=== PATIENT | male | born 1990 | race Caucasian/White ===

== ENCOUNTER 2016-08-24 14:55 | Emergency (ER) | payer OTHER ==
[2016-08-24 15:30] LABS: BASOPHIL# 0.1 X10e3 (0-0.3); BASOPHIL% 0.5 % (0-2.5); EOSINOPHIL# 0.1 X10e3 (0-0.7); EOSINOPHIL% 1.5 % (0.0-7.0); HEMATOCRIT 49.8 % (38.0-50.0); HEMOGLOBIN 17.2 gm/dL (13.0-16.0); LYMPHOCYTE# 1.4 X10e3 (1.0-3.5); LYMPHOCYTE% 14.7 % (17.0-45.0); MEAN CELL VOLUME 85.8 FL (83-96); MEAN CORPUSCULAR HEMOGLOBIN 29.7 PG (28-34); MEAN CORPUSCULAR HGB CONC 34.6 g/dL (30-36); MONOCYTE# 0.7 X10e3 (0-1.0); MONOCYTE% 7.3 % (3.0-12.0); NEUTROPHIL# 7.4 X10e3 (1.5-7.1); PLATELET COUNT 247 X10e3 (140-420); RED CELL DISTRIBUTION WIDTH 13.7 % (11.0-15.5); WHITE BLOOD COUNT 9.7 X10e3 (4.0-10.5)
[2016-08-24 15:47] LABS: DIFF IND NO
[2016-08-24 15:58] LABS: ALBUMIN SERUM 5.1 g/dL (3.5-5.0); ALKALINE PHOSPHATASE 57 U/L (32-92); ALT (SGPT) 13 U/L (10-40); AST (SGOT) 17 U/L (10-42); BILIRUBIN, DIRECT 0.2 mg/dL (0.0-0.2); BILIRUBIN,INDIRECT 0.7 mg/dL (0.0-0.9); BILIRUBIN,TOTAL 0.9 mg/dL (0.2-2.0); BLOOD UREA NITROGEN 11 mg/dL (9-23); CALCIUM SERUM 9.5 mg/dL (8.4-10.2); CARBON DIOXIDE 22 mmol/L (22-31); CHLORIDE 106 mmol/L (100-111); GLOM FILT RATE Estimated 102.7 mL/min (>60); GLUCOSE FASTING 104 mg/dL (70-110); POTASSIUM 3.7 mmol/L (3.5-5.1); PROTEIN TOTAL SERUM 7.5 g/dL (6.0-8.3); SALICYLATE <4.0 mg/dL; SODIUM 138 mmol/L (135-145)
[2016-08-24 15:59] LABS: ACETAMINOPHEN <10 ug/mL; ALCOHOL BLOOD <5 mg/dL (0)
[2016-08-24 16:20] LABS: URINE SOURCE CLEAN CATCH
[2016-08-24 16:24] LABS: URINE APPEARANCE CLEAR; URINE BILIRUBIN NEG (NEG); URINE BLOOD NEG (NEG); URINE COLOR YELLOW; URINE GLUCOSE NEG (NORM); URINE KETONE NEG (NEG); URINE LEUKOCYTE ESTERASE NEG (NEG); URINE NITRATE NEG (NEG); URINE PH 5.5 (5-8); URINE PROTEIN NEG (NEG); URINE SPECIFIC GRAVITY 1.015 (1.003-1.035); URINE UROBILINOGEN 0.2 MG/DL (NORM)
[2016-08-24 16:30] LABS: MICRO INDICATED? NO
[2016-08-24 16:34] LABS: AMPHETAMINE POS (NEG); BARBITURATES NEG (NEG); BENZODIAZEPINES NEG (NEG); COCAINE NEG (NEG); MARIJUANA POS (NEG); OPIATES NEG (NEG); TRICYCLIC ANTIDEPRESSANTS NEG (NEG); U METHADONE NEG (NEG)
== END 2016-08-24 19:31 ==
LOC: SED 14:55
PROVIDERS: Emergency Medicine
DX: F32.9 Major depressive disorder, single episode, unspecified (principal); F17.200 Nicotine dependence, unspecified, uncomplicated
CPT/HCPCS: 36415; 80048; 80076; 80307; 81003; 85025; 96361; 96374; 99284; G0480; J2060

== ENCOUNTER 2016-08-24 16:00 | Inpatient (IN) | payer OTHER ==
--- NOTE | ~2016-08-24 | DS ---
Unit #: [id number] #: [id number] Patient: VANNESA VERGARA [id number] [facility] [address] [place] [address] [id number] I MR#: [id number] NAME: VANNESA VERGARA ROOM: [facility] Age: 26 Sex: M Admission Date: 08/24/2016 : 1990 Discharge Date: 08/26/2016 Attending Physician: Arron Gan M.D. Primary Care Physician: Generic Doctor Not In System DISCHARGE SUMMARY REASON FOR ADMISSION Anxiety and depression. DIAGNOSTIC STUDIES LABORATORY RESULTS: Remarkable for urine drug screen positive for benzodiazepine, amphetamine, and marijuana. HOSPITAL COURSE The patient was admitted to inpatient unit on 08/24/2016 and discharged on 08/26/2016. The patient was treated with group therapy, individual therapy, medication management. The patient was responsive to treatment. Subsequently, the patient was discharged with a plan to follow up in outpatient program. DISCHARGE MEDICATIONS Vistaril 25 mg t.i.d. for anxiety p.r.n. and trazodone 50 mg at bedtime for sleep. DISCHARGE DIAGNOSES Psychiatric: Major depressive disorder, recurrent, severe, F33.2; anxiety disorder, not otherwise specified, F40.01; cannabis abuse, moderate, F12.20; amphetamine use disorder, moderate, F15.20; sedative hypnotic use disorder, severe, F13.20. Secondary diagnosis: Deferred. Medical diagnosis: None. Stressors: Psychosocial stressors. DISCHARGE INSTRUCTIONS The patient to follow up in outpatient clinic as per social work professor. CONDITION ON DISCHARGE The patient was pleasant and cooperative. Denied any psychotic symptom or any suicidal ideation. Dictated by... Pasha Riley/mercedes Unit #: [id number] #: [id number] Patient: VANNESA VERGARA TD: 08/26/2016 13:59 JOB #: [id number] DISCHARGE SUMMARY Page 1 of 1 X Arron Gan MD X DISCHARGE SUMMARY
--- NOTE | ~2016-08-24 | HP ---
Unit #: [id number] #: [id number] Patient: VANNESA VERGARA [id number] [facility] [address] [place] [address] [id number] I MR#: [id number] NAME: VANNESA VERGARA ROOM: P252 Age: 26 Sex: M Admission Date: 08/24/2016 : 1990 Attending Physician: Arron Gan M.D. Admitting Physician: Arron Gan M.D. Primary Care Physician: Generic Doctor Not In System HISTORY AND PHYSICAL HISTORY OF PRESENT ILLNESS Vannesa is a 26-year-old male admitted on 08/24/2016 to 2 [facility] for suicidal ideation. He reports he is having panic attacks and has thoughts of walking into traffic. PAST MEDICAL HISTORY None. PAST SURGICAL HISTORY None. ALLERGIES None. SOCIAL HISTORY Smokes 1 pack of cigarettes daily. No alcohol use. Does report occasional marijuana use. He is currently single and homeless. FAMILY HISTORY Noncontributory. REVIEW OF SYSTEMS CONSTITUTIONAL: No fever or chills. HEENT: Denies any sore throat, ear pain or runny nose. CARDIOVASCULAR: Denies chest pain, irregular heart rhythm or palpitations. CHEST: Denies shortness of breath or cough. No hemoptysis. GASTROINTESTINAL: Denies nausea, vomiting, diarrhea or chronic constipation. ENDOCRINE: Denies history of increased thirst or urination. No recent significant weight loss or gain. GENITOURINARY: Denies dysuria, frequency, or hematuria. SKIN: Denies any rashes. HEMATOLOGIC: Denies history of increased bleeding or bruising. MUSCULOSKELETAL: Denies any hot, swollen joints. No generalized muscle pain. NEUROLOGIC: Denies problems with vision or speech. No frequent, severe headaches. No numbness, tingling or weakness in any extremities. Denies loss of bladder or bowel control. CURRENT MEDICATIONS None. PHYSICAL EXAMINATION Unit #: [id number] #: [id number] Patient: VANNESA VERGARA GENERAL: Alert, oriented, in no acute distress. VITAL SIGNS: Blood pressure 120/64, heart rate 60, respirations 16, temperature 97.6. HEIGHT: 5 feet 8. WEIGHT: 160 pounds. SKIN: Warm and dry without rash or lesion. HEENT: Normocephalic. TMs not viewed. Oral and nasal passages clear. Conjunctivae clear. PERRLA. EOMs intact. NECK: Supple without lymphadenopathy or thyromegaly. HEART: Regular rate and rhythm without murmur. LUNGS: Clear. ABDOMEN: Soft, nontender. : Not done. EXTREMITIES: No evidence of cyanosis, clubbing or edema. Moves all without focal deficit. NEUROLOGICAL: Grossly within normal limits. Cranial Nerves: II: Visual wilcox are intact. III, IV AND : Extraocular movements are intact. Pupils are equal, round and reactive to light. V: Facial sensation is grossly normal. VII: Facial movements and expression are normal. VIII: Auditory acuity grossly intact. IX, X: Uvula is midline. Phonation is normal. XI: Patient shrugs shoulders and turns head normally. XII: Tongue protrudes in the midline. Sensory and Motor Function: Sensory and motor sensation is grossly normal. Motor: moves all extremities well. Coordination: Gait is normal. Deep Tendon Reflexes: Intact. IMPRESSION Psychiatric admission. RECOMMENDATIONS PSYCHIATRIC: Per psychiatrist. MEDICAL: See no contraindications to participate in facility's activities. MEDICAL PROGNOSIS Good. MEDICAL CONDITION Stable. Dictated by... Gene Mckeon/lara TD: 08/25/2016 16:40 JOB #: [id number] Unit #: [id number] #: [id number] Patient: VANNESA VERGARA HISTORY AND PHYSICAL Page 1 of 1 X MARYJO SEO APRN X HISTORY AND PHYSICAL
--- NOTE | ~2016-08-24 | PA ---
Unit #: [id number] #: [id number] Patient: VANNESA VERGARA [id number] [facility] [address] [place] [address] [id number] I MR#: [id number] NAME: VANNESA VERGARA ROOM: [facility] Age: 26 Sex: M Admission Date: 08/24/2016 : 1990 Date of Assessment: 08/25/2016 Attending Physician: Arron Gan M.D. Admitting Physician: Arron Gan M.D. Primary Care Physician: Generic Doctor Not In System PSYCHIATRIC ASSESSMENT INFORMANTS The patient reliability, fair informant and chart reliability, good. CHIEF COMPLAINT Anxiety and marijuana abuse. HISTORY OF PRESENT ILLNESS Mr. Vannesa Vergara is a 26-year-old male, presented with the above-mentioned complaint. The patient reported experiencing panic attack. Reported feeling tearful, sad, and depressed, they are out of control. Experiencing suicidal ideation, feel like walking into the traffic. The patient also reported smoking marijuana daily. The patient reported lots of grief. The patient reports he has no close friends or family. The patient reports his children do not live with him. The patient reported feeling low energy, hopeless, worthless, sleeping 3 hours. The patient is currently on no medication. History of substance abuse in parents and history of mental health problems in mother. The patient reported tobacco use, age of onset 14 and marijuana, age of onset 7. Tried Adderall in the past. The patient denied any history of blackouts, HIV, hepatitis, withdrawal symptoms, or IV drug use. Needing inpatient admission at this time for psychiatric stabilization. PAST PSYCHIATRIC HISTORY Unknown for any history of any previous treatment. FAMILY HISTORY AND SOCIAL HISTORY The patient has a poor support system. No history of abuse or legal charges. MEDICAL HISTORY Unremarkable for any chronic medical illness. Musculoskeletal; muscle strength and tone, no atrophy or abnormal movement. Gait normal. MEDICATION HISTORY None. ALLERGIES No known drug allergies. SUBSTANCE ABUSE HISTORY Please see above. REVIEW OF SYSTEMS Unit #: [id number] #: [id number] Patient: VANNESA VERGARA HEENT: Eyes, clear. Ears, nose, mouth, and throat; clear. CARDIOVASCULAR: Unremarkable. RESPIRATORY: Unremarkable. GI: Unremarkable. : Unremarkable. SKIN: Unremarkable. LYMPH NODE: Unremarkable. NEUROLOGIC: Unremarkable. ENDOCRINE: Unremarkable. HEMATOLOGIC: Unremarkable. ALLERGIC/IMMUNOLOGIC: Unremarkable. MUSCULOSKELETAL: Muscle strength and tone, no atrophy or abnormal movement. Gait normal. MENTAL STATUS EXAMINATION CONSTITUTIONAL: Measurement of vital signs; temperature 98.2, heart rate 124, respirations 24, oxygen saturation 100%, and blood pressure 157/108. Height 5 feet 8 inches and weight 160 pounds. GENERAL APPEARANCE: The patient dressed casually. The patient did not show any facial deformity. MUSCULOSKELETAL: Please see above. PSYCHIATRIC EXAMINATION Description of speech; regular rate, normal volume, normal articulation, and coherent. Description of thought process, goal directed. Description of association, intact. Description of abnormal psychotic thinking; the patient denied any hallucination. Mood lability, panic attacks, and marijuana abuse. Description of the patient's judgment: Concerning everyday activity, poor. Social situation, poor. Concerning psychiatric condition, poor. Complete mental status examination; oriented in time, place, and person. Recent and remote memory, fair. Attention span and concentration, fair. Language, able to name object and repeat phrases. Fund of knowledge, aware of current event and passive vocabulary intact. Mood and affect, sad and dysphoric. Insight and judgment, fair to poor. ASSETS AND LIABILITIES Assets, the patient is articulate and able to take care of his ADL. Liability; history of depression, anxiety, and marijuana abuse. ADMITTING DIAGNOSES Psychiatric: Major depressive disorder, recurrent, severe, F33.2; anxiety disorder, not otherwise specified, F40.01; and cannabis abuse, moderate, F12.20. Secondary diagnosis: Deferred. Medical diagnosis: None. Stressors: Psychosocial stressors. PSYCHIATRIC PLAN AND TREATMENT GOAL AND DISCHARGE PLAN 1. Advised to admit the patient on the inpatient unit. Provide safe, supportive, and structured environment. 2. Ordered labs; CBC, CMP, UA, and UDS. 3. The patient to attend all the programing, group therapy, individual therapy, and chemical dependency group. Unit #: [id number] #: [id number] Patient: VANNESA VERGARA 4. Plan to consider medication such as Vistaril, trazodone, and Celexa for the above-mentioned symptom. TREATMENT GOAL To attain euthymic mood, gain insight into his problem, and learn coping skills. DISCHARGE PLAN Plan to stabilize the patient and consider followup in outpatient program. ESTIMATED LENGTH OF STAY 3 to 5 days. Dictated by... Pasha Riley/mercedes TD: 08/25/2016 14:04 JOB #: [id number] PSYCHIATRIC ASSESSMENT Page 1 of 1 X Arron Gan MD PSYCHIATRIC ASSESSMENT
[2016-08-25 11:29] LABS: URINE APPEARANCE CLEAR; URINE BILIRUBIN NEG (NEG); URINE BLOOD NEG (NEG); URINE COLOR YELLOW; URINE GLUCOSE NEG (NEG); URINE KETONE NEG (NEG); URINE LEUKOCYTE ESTERASE NEG (NEG); URINE NITRATE NEG (NEG); URINE PROTEIN NEG (NEG); URINE SPECIFIC GRAVITY 1.022 (1.003-1.035)
[2016-08-25 11:47] LABS: BASOPHIL# 0.1 X10e3 (0-0.3); BASOPHIL% 0.8 % (0-2.5); EOSINOPHIL# 0.4 X10e3 (0-0.7); EOSINOPHIL% 5.1 % (0.0-7.0); HEMATOCRIT 48.3 % (38.0-50.0); HEMOGLOBIN 16.4 gm/dL (13.0-16.0); LYMPHOCYTE# 1.8 X10e3 (1.0-3.5); LYMPHOCYTE% 25.3 % (17.0-45.0); MEAN CELL VOLUME 87.1 FL (83-96); MEAN CORPUSCULAR HEMOGLOBIN 29.6 PG (28-34); MEAN PLATELET VOLUME 8.6 FL (6.5-11.5); MONOCYTE# 0.8 X10e3 (0-1.0); MONOCYTE% 10.3 % (3.0-12.0); NEUTROPHIL# 4.3 X10e3 (1.5-7.1); NEUTROPHIL% 58.5 % (40-75); PLATELET COUNT 218 X10e3 (140-420); RED BLOOD COUNT 5.54 X10e (3.90-5.60); RED CELL DISTRIBUTION WIDTH 13.6 % (11.0-15.5); WHITE BLOOD COUNT 7.3 X10e3 (4.0-10.5)
[2016-08-25 11:49] LABS: DIFF IND NO
[2016-08-25 12:12] LABS: ALBUMIN SERUM 4.1 g/dL (3.5-5.0); BILIRUBIN,TOTAL 0.4 mg/dL (0.2-2.0); BUN/CREATININE RATIO 8.88; CALCIUM SERUM 9.1 mg/dL (8.4-10.2); CREATININE SERUM 0.9 mg/dL (0.6-1.4); GLOM FILT RATE Estimated 116.6 mL/min (>60); POTASSIUM 4.8 mmol/L (3.5-5.1); PROTEIN TOTAL SERUM 6.2 g/dL (6.0-8.3)
[2016-08-25 12:35] LABS: AMPHETAMINE POS (NEG); BARBITURATES NEG (NEG); BENZODIAZEPINES POS (NEG); COCAINE NEG (NEG); MARIJUANA POS (NEG); OPIATES NEG (NEG); TRICYCLIC ANTIDEPRESSANTS NEG (NEG); U METHADONE NEG (NEG)
== END 2016-08-26 13:45 | disposition home or self-care (01) | DRG 885 ==
LOC: P2L 16:00
PROVIDERS: Psychiatry & Neurology Psychiatry
DX: F33.2 Major depressive disorder, recurrent severe without psychotic features (principal); F13.10 Sedative, hypnotic or anxiolytic abuse, uncomplicated; F41.9 Anxiety disorder, unspecified; F12.10 Cannabis abuse, uncomplicated; F15.10 Other stimulant abuse, uncomplicated
CPT/HCPCS: 80053; 80307; 81003; 85025

== ENCOUNTER 2016-08-28 10:39 | Inpatient (IN) | payer OTHER ==
--- NOTE | ~2016-08-28 | PA ---
Unit #: [id number] #: [id number] Patient: VANNESA VERGARA [id number] [facility] [address] [place] [address] [id number] I MR#: [id number] NAME: VANNESA VERGARA ROOM: [facility] Age: Sex: M Admission Date: 08/28/2016 : 1990 Date of Assessment: 08/29/2016 Attending Physician: Arron Gan M.D. Admitting Physician: Arron Gan M.D. Primary Care Physician: Primary Care Physician No PSYCHIATRIC ASSESSMENT INFORMANT Patient reliability, fair informant; chart reliability, good. CHIEF COMPLAINT Depression and anxiety. HISTORY OF PRESENT ILLNESS Mr. Vannesa Vergara is a 26-year-old male, who presented with the above-mentioned complaint. The patient well known to us from his previous admission on August 24 and discharged on August 27. The patient reports that he was released on Saturday and feels the medicine is not working, feeling sad, depressed, suicidal, hopeless, worthless, having thoughts of not living anymore, decreased sleep, increased anxiety, hearing loud noises. The patient had paranoid, reported low energy, sleeping 3 hours, agitation. Denied any homicidal ideation. Denied any use of any drugs. The patient was prescribed Vistaril and trazodone. The patient denied any homicidal ideation. Needing inpatient admission at this time for psychiatric stabilization. PAST PSYCHIATRIC HISTORY Remarkable for history of previous treatment. Last admission recently on 08/2016. FAMILY HISTORY AND SOCIAL HISTORY History of poor support system. No history of abuse. No legal charges. MEDICAL HISTORY Unremarkable for any chronic medical illness. Musculoskeletal; muscle strength and tone, no atrophy or abnormal movement. Gait normal. MEDICATION HISTORY The patient on Vistaril and trazodone. Vistaril 25 mg three times a day and trazodone 50 mg at bedtime. ALLERGIES No known drug allergies. SUBSTANCE ABUSE HISTORY The patient has a history of substance abuse, but denied any recent. The patient has a history of using tobacco, marijuana, and amphetamines. REVIEW OF SYSTEMS Unit #: [id number] #: [id number] Patient: VANNESA VERGARA HEENT: Eyes, clear. Ears, nose, mouth, and throat; clear. CARDIOVASCULAR: Unremarkable. RESPIRATORY: Unremarkable. GI: Unremarkable. : Unremarkable. SKIN: Unremarkable. LYMPH NODE: Unremarkable. NEUROLOGIC: Unremarkable. ENDOCRINE: Unremarkable. HEMATOLOGIC: Unremarkable. ALLERGIC/IMMUNOLOGIC: Unremarkable. MUSCULOSKELETAL: Muscle strength and tone, no atrophy or abnormal movement. Gait normal. MENTAL STATUS EXAMINATION CONSTITUTIONAL: Measurement of vital signs; 98.3, 57, 14, and blood pressure 117/71. GENERAL APPEARANCE: The patient did not show any facial deformity. MUSCULOSKELETAL: Please see above. PSYCHIATRIC EXAMINATION Description of speech; regular rate, normal volume. Description of thought process, goal directed. Description of association, intact. Description of abnormal psychotic thinking; the patient denied any hallucination or delusions, but mood lability, suicidal ideation. Denied any homicidal ideation. Denied any psychotic symptom. Description of the patient's judgment, concerning everyday activity, poor. Social situation, poor. Concerning psychiatric condition, poor. Complete mental status examination; oriented in time, place, and person. Recent and remote memory, fair. Attention span and concentration, fair. Language, able to name object and repeat phrases. Fund of knowledge, aware of current event and past history. Vocabulary intact. Mood and affect, sad and dysphoric. Insight and judgment, fair to poor. ASSETS AND LIABILITIES Assets, the patient articulate, able to take care of his ADL. Liability, history of depression and substance abuse. ADMITTING DIAGNOSES Psychiatric: Major depressive disorder, recurrent, severe, F33.2. Anxiety disorder, not otherwise specified, F40.01. Cannabis abuse, moderate, F12.20. Secondary diagnosis: Deferred. Medical diagnosis: None. Stressors: Psychosocial stressor. PSYCHIATRIC PLAN AND TREATMENT GOAL AND DISCHARGE PLAN 1. Advised to admit the patient on the inpatient unit. Provide safe, supportive, and structured environment. 2. Will order labs, UA, UDS. 3. The patient to attend all the programming, group therapy, individual therapy, chemical dependency group. Advised to resume medication Vistaril and trazodone. If needed, consider further adjustment of medication. Unit #: [id number] #: [id number] Patient: VANNESA VERGARA TREATMENT GOAL To attain euthymic mood, gain insight into his problem, and learn coping skills. DISCHARGE PLAN Plan to stabilize the patient and consider followup in outpatient program. ESTIMATED LENGTH OF STAY 3 to 5 days. Dictated by... Arron Gan M.D. JOSEMANUEL/mercedes TD: 08/29/2016 15:53 JOB #: [id number] PSYCHIATRIC ASSESSMENT Page 1 of 1 X Arron Gan MD PSYCHIATRIC ASSESSMENT
--- NOTE | ~2016-08-28 | PN ---
Unit #: [id number] #: [id number] Patient: VANNESA GARCIA [id number] [facility] [address] [place] [address] [id number] I MR#: [id number] NAME: VANNESA GARCIA ROOM: [facility] Age: 26 Sex: M Admission Date: 08/28/2016 : 1990 Attending Physician: Arron Gan M.D. Admitting Physician: Arron Gan M.D. Primary Care Physician: Primary Care Physician Zaida MADRIGAL PROGRESS NOTES DATE OF SERVICE 08/31/2016 DISCUSSION Mr. Vannesa Garcia is a 26-year-old male. The patient continues to report having anxiety. The patient reported that he is not going to leave till he feels better. The patient, however, denied any suicidal or homicidal ideation. Complete Review of Systems: Unremarkable. MENTAL STATUS EXAMINATION General Appearance: The patient dressed casually. Attention span, concentration: Fair. Oriented in place and person. Mood and affect: Sad, dysphoric. The patient denied any thoughts of harming self or others. Recent and remote memory: Poor. Insight and judgment: Poor. DIAGNOSES 1. Mood disorder, not otherwise specified. 2. Anxiety disorder, not otherwise specified. ASSESSMENT/PLAN Advised to continue with current medication and therapeutic protocol. If needed, consider further adjustment of medication. Dictated by... Pasha Riley/victor manuel TD: 09/01/2016 08:16 JOB #: [id number] Unit #: [id number] #: [id number] Patient: VANNESA GARCIA PROGRESS NOTES Page 1 of 1 X Arron Gan MD X PROGRESS NOTE
--- NOTE | ~2016-08-28 | PN ---
Unit #: [id number] #: [id number] Patient: VANNESA GARCIA [id number] [facility] [address] [place] [address] [id number] I MR#: [id number] NAME: VANNESA GARCIA ROOM: P252 Age: 26 Sex: M Admission Date: 08/28/2016 : 1990 Attending Physician: Arron Gan M.D. Admitting Physician: Arron Gan M.D. Primary Care Physician: Primary Care Physician Zaida DENNY NOTES DATE OF SERVICE: 08/30/2016 DISCUSSION Vannesa Garcia is a 26-year-old male, seen on 08/30/2016. The patient interviewed, chart reviewed, and obtained information from nursing staff. The patient was compliant and cooperative. Mood was sad, dysphoric, anxious. The patient reports that he is still having a lot of problem with the anxiety, still unable to contract for safety. REVIEW OF SYSTEMS Complete review of systems unremarkable. MENTAL STATUS EXAMINATION General appearance, the patient dressed casually. Attention span and concentration, fair. Oriented in time, place, and person. Mood and affect; sad, dysphoric and anxious. Speech, monotone. Thought process, concrete. The patient denied any thoughts of harming self or others. Recent and remote memory, poor. Insight and judgment, poor. DIAGNOSES 1. Mood disorder, not otherwise specified. 2. Anxiety disorder, not otherwise specified. ASSESSMENT/PLAN Advised to continue with current medication and therapeutic protocol. If needed, consider further adjustment of medication. Dictated by... Pasha Riley/mercedes TD: 08/31/2016 01:13 JOB #: [id number] Unit #: [id number] #: [id number] Patient: VANNESA GARCIA PROGRESS NOTES Page 1 of 1 X Arron Gan MD PROGRESS NOTE
--- NOTE | ~2016-08-28 | HP ---
Unit #: [id number] #: [id number] Patient: VANNESA VERGARA [id number] [facility] [address] [place] [address] [id number] I MR#: [id number] NAME: VANNESA VERGARA ROOM: P252 Age: 26 Sex: M Admission Date: 08/28/2016 : 1990 Attending Physician: Arron Gan M.D. Admitting Physician: Arron Gan M.D. Primary Care Physician: Primary Care Physician No HISTORY AND PHYSICAL HISTORY OF PRESENT ILLNESS Vannesa is a 26 year old, admitted to 2 [facility] with depression and verbalizing wanting to hurt himself. He was just discharged from this facility. The patient was seen and history and physical, dated 08/25/2016 was reviewed. This is current. No changes. Please see history and physical, dated 08/25/2016. Dictated by... Reba Han P.A.-C. for Pasha Martinez/barbie TD: 08/29/2016 06:24 JOB #: [id number] HISTORY AND PHYSICAL Page 1 of 1 X Reba Han HISTORY AND PHYSICAL
--- NOTE | ~2016-08-28 | PN ---
Unit #: [id number] #: [id number] Patient: VANNESA GARCIA [id number] [facility] [address] [place] [address] [id number] I MR#: [id number] NAME: VANNESA GARCIA ROOM: P252 Age: 26 Sex: M Admission Date: 08/28/2016 : 1990 Attending Physician: Arron Gan M.D. Admitting Physician: Arron Gan M.D. Primary Care Physician: Primary Care Physician Zaida DENNY NOTES DATE OF SERVICE: 08/29/2016 DISCUSSION Ms. Vannesa Garcia is a 26-year-old male, seen on 08/29/2016. The patient interviewed, chart reviewed, and obtained information from nursing staff. The patient is compliant, cooperative, anxious, nervous, and reported having trouble falling asleep, staying asleep. The patient still feeling anxious, nervous, severe anxiety, panic attack. Complete review of systems unremarkable. MENTAL STATUS EXAMINATION General appearance, the patient dressed casually. Attention span and concentration, fair. Oriented in place and person. Mood and affect, labile. Speech, monotone. Thought process, concrete. The patient denied any thoughts of harming self or others. Recent and remote memory, poor. Insight and judgment, poor. DIAGNOSIS Major depressive disorder, recurrent. ASSESSMENT AND PLAN Advised to continue with Neurontin 200 mg t.i.d., Vistaril 25 mg t.i.d. with Desyrel 50 mg at bedtime, Celexa 20 mg daily. If needed, consider further adjustment of medication. Dictated by... Pasha Riley/mercedes TD: 08/29/2016 22:45 JOB #: [id number] Unit #: [id number] #: [id number] Patient: VANNESA GARCIA PATKARRIE PROGRESS NOTES Page 1 of 1 X Arron Gan MD PROGRESS NOTE
--- NOTE | ~2016-08-28 | PN ---
Unit #: [id number] #: [id number] Patient: VANNESA GARCIA [id number] [facility] [address] [place] [address] [id number] I MR#: [id number] NAME: VANNESA GARCIA ROOM: P252 Age: 26 Sex: M Admission Date: 08/28/2016 : 1990 Attending Physician: Arron Gan M.D. Admitting Physician: Arron Gan M.D. Primary Care Physician: Primary Care Physician Zaida DENNY NOTES DATE OF SERVICE: 09/01/2016 DISCUSSION Vannesa Garcia is a 26-year-old male, seen on 09/01/2016. The patient interviewed, chart reviewed, and obtained information from nursing staff. The patient is compliant with medication. Able to maintain safe behavior. Denied any thoughts of harming self or others. Flat affect. Sad and dysphoric mood. REVIEW OF SYSTEMS Complete review of systems unremarkable. MENTAL STATUS EXAMINATION General appearance, the patient dressed casually. Attention span and concentration, fair. Oriented in place and person. Mood and affect, labile. Speech, monotone. Thought process, concrete. The patient denied any thoughts of harming self or others, but seclusive, isolative, and guarded. Recent and remote memory, poor. Insight and judgment, poor. DIAGNOSES Major depressive disorder, recurrent and anxiety disorder, not otherwise specified. ASSESSMENT AND PLAN Advised to continue with current combination of medications; Neurontin 300 mg t.i.d., Vistaril 50 mg t.i.d., Celexa 20 mg daily, and Desyrel 50 mg at bedtime. If needed, consider further adjustment of medication. Dictated by... Pasha Riley/mercedes TD: 09/01/2016 16:26 JOB #: [id number] Unit #: [id number] #: [id number] Patient: VANNESA GARCIA PROGRESS NOTES Page 1 of 1 X Arron Gan MD PROGRESS NOTE
--- NOTE | ~2016-08-28 | DS ---
Unit #: [id number] #: [id number] Patient: VANNESA VERGARA [id number] [facility] [address] [place] [address] [id number] I MR#: [id number] NAME: VANNESA VERGARA ROOM: [facility] Age: 26 Sex: M Admission Date: 08/28/2016 : 1990 Discharge Date: 09/03/2016 Attending Physician: Arron Gan M.D. Primary Care Physician: Primary Care Physician No DISCHARGE SUMMARY REASON FOR ADMISSION Depression, anxiety. DIAGNOSTIC STUDIES LABORATORY DATA: Unremarkable for urine drugs screen. Positive for marijuana. HOSPITAL COURSE The patient was admitted to inpatient unit on August 28 and discharged on 09/03/2016. The patient was treated on the inpatient unit with group therapy, individual therapy, medication management, structured milieu. The patient was response to treatment, and subsequently the patient was discharged with a plan to follow up in outpatient program. DISCHARGE MEDICATIONS 1. Neurontin 300 mg 3 times a day for anxiety. 2. Vistaril 50 mg 3 times a day for anxiety. 3. Desyrel 50 mg at bedtime for sleep. 4. Zyprexa 10 mg at bedtime for mood stabilization. DISCHARGE DIAGNOSES PSYCHIATRIC: Major depressive disorder, recurrent, severe, F33.2. 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 MEDICAL: None. STRESSORS: Psychosocial stressor. FOLLOWUP CARE The patient to follow up in outpatient clinic as per social work specialist. CONDITION ON DISCHARGE The patient pleasant, cooperative. Denied any symptom or any suicidal ideation. PROGNOSIS Guarded. DIET AND ACTIVITY As tolerated. Unit #: [id number] #: [id number] Patient: VANNESA VERGARA Dictated by... Arron Gan M.D. SZC/victor manuel TD: 09/04/2016 11:43 JOB #: [id number] DISCHARGE SUMMARY Page 1 of 1 X Arron Gan MD X DISCHARGE SUMMARY
--- NOTE | ~2016-08-28 | CO ---
Unit #: [id number] #: [id number] Patient: VANNESA VERGARA [id number] [facility] [address] [place] [address] [id number] I MR#: [id number] NAME: VANNSEA VERGARA ROOM: [facility] Age: 26 Sex: M Admission Date: 08/28/2016 : 1990 Attending Physician: Arron Gan M.D. Primary Care Physician: Primary Care Physician No Consultation Date: 09/02/2016 CONSULTATION REPORT ORDERING PROVIDER Dr. Gan. REASON FOR CONSULT Asthma. SUBJECTIVE The patient reports that when he exercises and tries to run, he gets short of breath and wheezing. It does not happen except with exertion. He does not have any nighttime symptoms. His wheezing and shortness of breath are mild. OBJECTIVE His lungs are clear to auscultation bilaterally. Otherwise, his examination is unremarkable. ASSESSMENT Exercise-induced asthma. PLAN Plan is for the patient to see his primary care provider outpatient as he is not going to be exercising while at [facility]. Dictated by... Gene Cruz/mercedes TD: 09/02/2016 23:18 JOB #: [id number] CONSULTATION REPORT Page 1 of 1 X LALITHA MAYA APRN CONSULTATION REPORT
--- NOTE | ~2016-08-28 | PN ---
Unit #: [id number] #: [id number] Patient: VANNESA GARCIA [id number] [facility] [address] [place] [address] [id number] I MR#: [id number] NAME: VANNESA GARCIA ROOM: P252 Age: 26 Sex: M Admission Date: 08/28/2016 : 1990 Attending Physician: Arron Gan M.D. Admitting Physician: Arron Gan M.D. Primary Care Physician: Primary Care Physician Zaida MADRIGAL PROGRESS NOTES DATE OF SERVICE 09/02/16 DISCUSSION Vannesa Garcia is a 26-year-old male seen on 09/02/16. Patient interviewed, chart reviewed, I obtained information from nursing staff. Patient reported that he is feeling better, decreasing anxiety. Patient reports that medication is helping him. COMPLETE REVIEW OF SYSTEMS Unremarkable. MENTAL STATUS EXAMINATION GENERAL APPEARANCE: Patient dressed casually. ATTENTION SPAN AND CONCENTRATION: Fair. Oriented in place and person. MOOD AND AFFECT: Labile, anxious, nervous. SPEECH: Regular rate. THOUGHT PROCESS: Goal directed. Patient denied any thoughts of harming self or others, or any psychotic symptom. RECENT AND REMOTE MEMORY: Poor. INSIGHT AND JUDGMENT: Poor. DIAGNOSES Major depressive disorder, recurrent Anxiety disorder, NOS ASSESSMENT/PLAN Advised to continue with current medication and therapeutic protocol. If needed, consider further adjustment in medication. Dictated by... Pasha Riley/saurav TD: 09/02/2016 23:19 JOB #: [id number] Unit #: [id number] #: [id number] Patient: VANNESA GARCIA PROGRESS NOTES Page 1 of 1 X Arron Gan MD X PROGRESS NOTE
[2016-08-29 09:43] LABS: URINE APPEARANCE CLEAR; URINE BILIRUBIN NEG (NEG); URINE BLOOD NEG (NEG); URINE COLOR YELLOW; URINE GLUCOSE NEG (NEG); URINE KETONE NEG (NEG); URINE LEUKOCYTE ESTERASE NEG (NEG); URINE NITRATE NEG (NEG); URINE PROTEIN NEG (NEG); URINE SPECIFIC GRAVITY 1.018 (1.003-1.035)
[2016-08-29 10:14] LABS: AMPHETAMINE NEG (NEG); BARBITURATES NEG (NEG); BENZODIAZEPINES NEG (NEG); COCAINE NEG (NEG); MARIJUANA POS (NEG); OPIATES NEG (NEG); TRICYCLIC ANTIDEPRESSANTS NEG (NEG); U METHADONE NEG (NEG)
== END 2016-09-03 16:00 | disposition home or self-care (01) | DRG 885 ==
LOC: P2L 13:08
PROVIDERS: Psychiatry & Neurology Psychiatry
DX: F33.2 Major depressive disorder, recurrent severe without psychotic features (principal); F13.20 Sedative, hypnotic or anxiolytic dependence, uncomplicated; F15.20 Other stimulant dependence, uncomplicated; F41.9 Anxiety disorder, unspecified; F12.20 Cannabis dependence, uncomplicated; J45.909 Unspecified asthma, uncomplicated
CPT/HCPCS: 80307; 81003

== ENCOUNTER 2016-09-04 16:00 | Inpatient (IN) | payer OTHER ==
--- NOTE | ~2016-09-04 | PN ---
Unit #: [id number] #: [id number] Patient: VANNESA GARCIA [id number] [facility] [address] [place] [address] [id number] I MR#: [id number] NAME: VANNESA GARCIA ROOM: P252 Age: 26 Sex: M Admission Date: 09/04/2016 : 1990 Attending Physician: Arron Gan M.D. Admitting Physician: Arron Gan M.D. Primary Care Physician: Primary Care Physician Zaida MADIRGAL PROGRESS NOTES DATE 09/08/2016 DISCUSSION Mr. Garcia is a 26-year-old white male who was seen today and chart was reviewed and case was discussed with the staff. He has been anxious, withdrawn, depressed and and reportedly not feeling good and has been expressing feelings of hopelessness and helplessness and suicidal thoughts. Meanwhile, he has been taking medications and has been tolerating them fairly well. MENTAL STATUS EXAMINATION Young white male who was casually dressed with fair personal hygiene and appears to be in no acute distress or discomfort. He was awake and alert with intact orientation. He reports having suicidal ideation but denies any homicidal ideation. His insight and judgement remains slightly impaired. TREATMENT PLAN 1. Will continue on his current treatment protocol. Will monitor his response to medications and make further adjustments as needed. 2. Will continue to follow up. Dictated by... Rosendo Morales M.D. XOCHITL/lara TD: 09/08/2016 18:01 JOB #: [id number] Unit #: [id number] #: [id number] Patient: VANNESA GARCIA PROGRESS NOTES Page 1 of 1 X Rosendo Morales MD X PROGRESS NOTE
--- NOTE | ~2016-09-04 | PN ---
Unit #: [id number] #: [id number] Patient: VANNESA GARCIA [id number] [facility] [address] [place] [address] [id number] I MR#: [id number] NAME: VANNESA GARCIA ROOM: P252 Age: 26 Sex: M Admission Date: 09/04/2016 : 1990 Attending Physician: Arron Gan M.D. Admitting Physician: Arron Gan M.D. Primary Care Physician: Primary Care Physician Zaida DENNY NOTES DATE September 10, 2016 DISCUSSION Mr. Garcia is a 26-year-old white male, who was seen today and chart was reviewed and the case was discussed with the staff. He has been anxious, withdrawn, and rather seclusive to himself. Meanwhile, he has been cooperative with the treatment recommendations and he has been taking the medications and tolerating them fairly well with no reported side effects. MENTAL STATUS EXAMINATION Young white male, who was casually dressed with fair personal hygiene and appears to be in no acute distress or discomfort. He was awake and alert on interaction with intact orientation. His mood is anxious with a congruent affect. He denies any suicidal or homicidal ideations. His insight and judgment remain slightly impaired. TREATMENT PLAN 1. We will continue him on his current medications and treatment protocol, and will monitor his response to the medications, and make further adjustments as needed. 2. We will continue to followup. Dictated by... Pasha Booth/barbie TD: 09/11/2016 14:14 JOB #: [id number] Unit #: [id number] #: [id number] Patient: VANNESA GARCIA PATKARRIE PROGRESS NOTES Page 1 of 1 X Rosendo Morales MD X PROGRESS NOTE
--- NOTE | ~2016-09-04 | HP ---
Unit #: [id number] #: [id number] Patient: VANNESA VERGARA [id number] [facility] [address] [place] [address] [id number] I MR#: [id number] NAME: VANNESA VERGARA ROOM: P252 Age: 26 Sex: M Admission Date: 09/04/2016 : 1990 Attending Physician: Arron Gan M.D. Admitting Physician: Arron Gan M.D. Primary Care Physician: Primary Care Physician No HISTORY AND PHYSICAL Vannesa is a 26 year old admitted to [facility]. He was just discharged from this facility less than 24 hours ago. Patient was seen and H and P dated 08/25/16 was reviewed. This is current. No changes. Please see H and P dated 08/25/16. Dictated by... Reba Han P.A.-C. for Pasha Martinez/lara TD: 09/04/2016 19:55 JOB #: [id number] HISTORY AND PHYSICAL Page 1 of 1 X Reba Han HISTORY AND PHYSICAL
--- NOTE | ~2016-09-04 | PN ---
Unit #: [id number] #: [id number] Patient: VANNESA GARCIA [id number] [facility] [address] [place] [address] [id number] I MR#: [id number] NAME: VANNESA GARCIA ROOM: P252 Age: 26 Sex: M Admission Date: 09/04/2016 : 1990 Attending Physician: Arron Gan M.D. Admitting Physician: Arron Gan M.D. Primary Care Physician: Primary Care Physician Zaida MADRIGAL PROGRESS NOTES DATE 09/05/2016 DISCUSSION Vannesa Garcia is a 26-year-old male seen on 09/05/2016. The patient interviewed, chart reviewed. Obtained information from nursing staff. The patient continues to report anxious, nervous but pleasant and cooperative during interview. Able to maintain safe behavior, compliant with medication. No agitation. Complete review of systems unremarkable. MENTAL STATUS EXAMINATION General appearance, the patient dressed casually. Attention span and concentration fair. Oriented to place and person. Mood and affect labile. Speech monotone. Thought process concrete. The patient denied any thoughts of harming self or others but having passing suicidal ideation and reported anxiety. Recent and remote memory poor. Insight and judgement poor. DIAGNOSES 1. Major depressive disorder recurrent 2. Anxiety disorder NOS ASSESSMENT/PLAN Advise to continue with current medication and therapeutic protocol. If needed consider further adjustment of medication. Dictated by... Pasha Riley/che TD: 09/05/2016 20:53 JOB #: [id number] Unit #: [id number] #: [id number] Patient: VANNESA GARCIA PROGRESS NOTES Page 1 of 1 X Arron Gan MD PROGRESS NOTE
--- NOTE | ~2016-09-04 | PN ---
Unit #: [id number] #: [id number] Patient: VANNESA VERGARA [id number] [facility] [address] [place] [address] [id number] I MR#: [id number] NAME: VANNESA VERGARA ROOM: P252 Age: 26 Sex: M Admission Date: 09/04/2016 : 1990 Attending Physician: Arron Gan M.D. Admitting Physician: Arron Gan M.D. Primary Care Physician: Primary Care Physician Zaida [facility] PROGRESS NOTES DATE 09/06/2016 DISCUSSION Vannesa Vergara is a 26-year-old male, seen on 09/06/2016. The patient continues to report having anxiety, panic attack, reporting depression, 5/10, anxiety 5/10, with 10 being worse. Vital signs stable, 98.6, 55, 16, and 116/74. The patient denied any suicidal ideation but continues to report having severe anxiety. REVIEW OF SYSTEMS Complete review of systems unremarkable. MENTAL STATUS EXAMINATION General appearance: Patient dressed casually in hospital attire. Attention span and concentration, fair. Oriented in time, place, and person. Mood and affect, sad and dysphoric, anxious. Speech, regular rate. Thought process, goal-directed. The patient denied any thoughts of harming self or others or any psychotic symptoms. Recent and remote memory, poor. Insight and judgment, poor. DIAGNOSES 1. Mood disorder, NOS. 2. Anxiety disorder, NOS. ASSESSMENT/PLAN Advised to continue with the current combination of Zyprexa, Desyrel, Vistaril, Neurontin, if needed consider further adjustment of medication, avoiding SSRIs. The patient became more anxious when he was on SSRI, plan to consider medications such as Elavil. Dictated by... Pasha Riley/barbie Unit #: [id number] #: [id number] Patient: VANNESA VERGARA TD: 09/07/2016 05:27 JOB #: [id number] [facility] PROGRESS NOTES Page 1 of 1 X Arron Gan MD X PROGRESS NOTE
--- NOTE | ~2016-09-04 | PN ---
Unit #: [id number] #: [id number] Patient: VANNESA GARCIA [id number] [facility] [address] [place] [address] [id number] I MR#: [id number] NAME: VANNESA GARCIA ROOM: P252 Age: 26 Sex: M Admission Date: 09/04/2016 : 1990 Attending Physician: Arron Gan M.D. Admitting Physician: Arron Gan M.D. Primary Care Physician: Primary Care Physician Zaida MADRIGAL PROGRESS NOTES DATE 09/07/2016 DISCUSSION Mr. Garcia is a 26-year-old white male who was seen today and chart was reviewed and case was discussed with the staff. He has been anxious, withdrawn though has not shown any agitation and has complaining of persistent anxiety and most of the medications are not helping and wants medications to be adjusted. MENTAL STATUS EXAMINATION Young white male who was casually dressed with fair personal hygiene and appears to be in no acute distress or discomfort. He was awake and alert with intact orientation. His mood was anxious with congruent affect. He denies any suicidal or homicidal ideation. His insight and judgement remains slightly impaired. TREATMENT PLAN 1. Will continue on his current treatment protocol. Will monitor his response to the medications and make further adjustments as needed. 2. Will continue to follow up. Dictated by... Pasha Booth/lara TD: 09/07/2016 15:35 JOB #: [id number] Unit #: [id number] #: [id number] Patient: VANNESA GARCIA PROGRESS NOTES Page 1 of 1 X Rosendo Morales MD PROGRESS NOTE
--- NOTE | ~2016-09-04 | DS ---
Unit #: [id number] #: [id number] Patient: VANNESA VERGARA [id number] [facility] [place] [address] [id number] I MR#: [id number] NAME: VANNESA VERGARA ROOM: [facility] Age: 26 Sex: M Admission Date: 09/04/2016 : 1990 Discharge Date: 09/12/2016 Attending Physician: Arron Gan M.D. Primary Care Physician: Primary Care Physician No DISCHARGE SUMMARY IDENTIFYING DATA Mr. Vergara is a 26-year-old single white male, who was self-referred to the hospital. DISCHARGE DIAGNOSES Psychiatric: Major depressive disorder, recurrent, moderate, without psychotic features; generalized anxiety disorder; cannabis abuse, moderate. Medical: None. Stressors: Moderate psychosocial stressors. HISTORY OF PRESENT ILLNESS Please see initial psychiatric evaluation for details. PAST PSYCHIATRIC HISTORY Please see initial psychiatric evaluation for details. PAST MEDICAL HISTORY Please see initial psychiatric evaluation for details. HOSPITAL COURSE The patient was [facility] and was oriented to the hospital environment. Routine p.r.n. medications were initiated, and he was started back on his home medications and medications were adjusted and he was closely monitored. He was initially admitted in acute rehab and then was transferred to care after Dr. Gan left for vacation. He was complaining of significant anxiety and BuSpar was added into his Zyprexa with good tolerability and therapeutic response, followed by which, it was decided that he will be discharged home and will continue treatment on an outpatient basis. DISCHARGE MEDICATIONS Zyprexa 10 mg at bedtime for depression, BuSpar 15 mg t.i.d. for anxiety, and trazodone 50 mg at bedtime for sleep. DISCHARGE CONDITION Stable. PROGNOSIS Fair. Dictated by... Rosendo Morales M.D. Unit #: [id number] #: [id number] Patient: VANNESA VERGARA XOCHITL/mercedes TD: 09/12/2016 07:24 JOB #: [id number] DISCHARGE SUMMARY Page 1 of 1 X Rosendo Morales MD X DISCHARGE SUMMARY
--- NOTE | ~2016-09-04 | PA ---
Unit #: [id number] #: [id number] Patient: VANNESA GARCIA [id number] [facility] [address] [place] [address] [id number] I MR#: [id number] NAME: VANNESA GARCIA ROOM: [facility] Age: 26 Sex: M Admission Date: 09/04/2016 : 1990 Date of Assessment: 09/05/2016 Attending Physician: Arron Gan M.D. Admitting Physician: Arron Gan M.D. Primary Care Physician: Primary Care Physician No PSYCHIATRIC ASSESSMENT INFORMANTS Patient's reliability, fair; chart reliability, good. CHIEF COMPLAINT Depression, anxiety, suicidal ideation. HISTORY OF PRESENT ILLNESS Mr. Vannesa Garcia is a 26-year-old male, who was last admitted on 08/28/2016 and discharged on 09/03/2016, admitted with the above-mentioned complaint. The patient has a history of previous admission at [facility] on 08/29/2015 and outpatient treatment earlier. The patient reported that he was having thoughts of suicide. Currently medications are not working. Currently endorsing thoughts of harming self. Denied any substance abuse. Reports medication helped him to sleep, but do not help him with thoughts of suicidal ideation. The patient reported that he is having severe anxiety and panic attack to the point that he is unable to function while doing his tasks. 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 The patient reports that he is unable to walk in his neighborhood due to severe anxiety. Denied any homicidal ideation or psychotic symptom. Needing inpatient admission at this time for psychiatric stabilization. PAST PSYCHIATRIC HISTORY Remarkable for history of previous multiple treatment as mentioned above. Last admission was on 08/29/2016. FAMILY HISTORY AND SOCIAL HISTORY The patient has a poor support system. No history of abuse. No legal charges. MEDICAL HISTORY Unremarkable for any chronic medical illness. Musculoskeletal; muscle strength and tone, no atrophy or abnormal movement. Gait normal. MEDICATION HISTORY The patient is on Zyprexa 10 mg at bedtime, Desyrel 50 mg at bedtime, Vistaril 50 mg t.i.d., Neurontin 300 mg t.i.d. ALLERGIES No known drug allergies. SUBSTANCE ABUSE HISTORY The patient denied any use of any drugs or alcohol, but in the past, Unit #: [id number] #: [id number] Patient: VANNESA GARCIA history of tobacco use, marijuana abuse, amphetamine abuse. REVIEW OF SYSTEMS HEENT: Eyes, clear. Ears, nose, mouth, and throat; clear. CARDIOVASCULAR: Unremarkable. RESPIRATORY: Unremarkable. GI: Unremarkable. : Unremarkable. SKIN: Unremarkable. LYMPH NODE: Unremarkable. NEUROLOGIC: Unremarkable. ENDOCRINE: Unremarkable. HEMATOLOGIC: Unremarkable. ALLERGIC/IMMUNOLOGIC: Unremarkable. MUSCULOSKELETAL: Muscle strength and tone, no atrophy or abnormal movement. Gait normal. MENTAL STATUS EXAMINATION CONSTITUTIONAL: Measurement of vital signs; temperature 98.4, pulse 60, respirations 14, blood pressure 120/78. GENERAL APPEARANCE: The patient is dressed casually. No facial deformity noted. MUSCULOSKELETAL: Please see above. PSYCHIATRIC EXAMINATION Description of speech; regular rate, somewhat rapid. Description of thought process, circumstantial. Description of association; guarded, paranoid, mood lability, anxious, suicidal ideation, depression, severe anxiety. Description of the patient's judgment; concerning. Everyday activity; poor. Social situation; poor and concerning. Psychiatric condition, poor. Complete mental status examination; oriented in time, place, and person. Recent and remote memory, fair. Attention span and concentration, fair. Language, able to name object and repeat phrases. Fund of knowledge, aware of current event and passive. Vocabulary intact. Mood and affect, sad and dysphoric. Insight and judgment, fair to poor. ASSETS AND LIABILITIES Assets; the patient is articulate, and able to take care of his ADL. Liability; history of depression, anxiety, suicidal ideation. ADMITTING DIAGNOSES Psychiatric: 1. Major depressive disorder, recurrent, severe, F33.2. 2. Anxiety disorder, not otherwise specified, F40.01. 3. Cannabis abuse, moderate, F12.20. Secondary diagnoses: Deferred. Medical diagnosis: None. Stressors: Psychosocial stressors. PSYCHIATRIC PLAN, TREATMENT GOAL AND DISCHARGE PLAN 1. Advised to admit the patient on the inpatient unit. Provide safe, supportive, and structured environment. 2. Ordered labs, UA and UDS. 3. The patient is to attend all the programing group therapy, individual Unit #: [id number] #: [id number] Patient: VANNESA GARCIA therapy, chemical dependency group. Advised to resume above medication and make further adjustment of medication if needed. The patient was started on SSRI earlier, but did not do well. 4. Treatment goal is to attain euthymic mood, gain insight into his problem, and learn coping skills. 5. Discharge plan is to stabilize the patient and consider followup in outpatient program. ESTIMATED LENGTH OF STAY 5 days. Dictated by... Pasha Riley/mercedes TD: 09/06/2016 05:27 JOB #: [id number] PSYCHIATRIC ASSESSMENT Page 1 of 1 X Arron Gan MD X PSYCHIATRIC ASSESSMENT
--- NOTE | ~2016-09-04 | PN ---
Unit #: [id number] #: [id number] Patient: VANNESA VERGARA [id number] [facility] [address] [place] [address] [id number] MR#: [id number] NAME: VANNESA VERGARA ROOM: P252 Age: 26 Sex: M Admission Date: 09/04/2016 : 1990 Attending Physician: Arron Gan M.D. Admitting Physician: Arron Gan M.D. Primary Care Physician: Primary Care Physician No [facility] PROGRESS NOTES DATE September 09, 2016 DISCUSSION Mr. Vergara is a 26-year-old white male, who was seen today and chart was reviewed and the case was discussed with the staff. He reports persistent anxiety and depression, meanwhile, he has been taking the medications and tolerating them fairly well with no reported side effects. MENTAL STATUS EXAMINATION Young white male, who was casually dressed with fair personal hygiene and appears to be in no acute distress or discomfort. He was awake and alert on interaction with intact orientation. He denies any suicidal or homicidal ideations. His insight and judgment remain slightly impaired. TREATMENT PLAN 1. We will increase his (1) to three times a day and will monitor his response and make further adjustments as needed. 2. We will continue to followup. Dictated by... Rosendo Morales M.D. XOCHITL/barbie TD: 09/10/2016 13:12 JOB #: [id number] [facility] PROGRESS NOTES Page 1 of 1 X Rosendo Morales MD X PROGRESS NOTE
--- NOTE | ~2016-09-04 | PN ---
Unit #: [id number] #: [id number] Patient: VANNESA GARCIA [id number] [facility] [address] [place] [address] [id number] I MR#: [id number] NAME: VANNESA GARCIA ROOM: P252 Age: 26 Sex: M Admission Date: 09/04/2016 : 1990 Attending Physician: Arron Gan M.D. Admitting Physician: Arron Gan M.D. Primary Care Physician: Primary Care Physician Zaida MADRIGAL PROGRESS NOTES DATE September 11, 2016 DISCUSSION Mr. Garcia is a 26-year-old white male, with mood disorder, who was seen today and chart was reviewed and the case was discussed with the staff. He has been anxious, withdrawn, and seclusive to himself. Meanwhile, he has been cooperative with the treatment recommendations and he has been taking the medications and tolerating them fairly well. MENTAL STATUS EXAMINATION Young white male, who was casually dressed with fair personal hygiene and appears to be in no acute distress or discomfort. He was awake and alert with intact orientation. His mood is anxious with a congruent affect. He denies any suicidal or homicidal ideations. His insight and judgment remain slightly impaired. TREATMENT PLAN We will continue him on his current medications and treatment protocol, and will monitor his response to the medications, and make further adjustments as needed. Dictated by... Pasha Booth/barbie TD: 09/12/2016 11:47 JOB #: [id number] [facility] PROGRESS NOTES Page 1 of 1 X Rosendo Morales MD X PROGRESS NOTE
[2016-09-05 09:42] LABS: URINE APPEARANCE CLEAR; URINE BILIRUBIN NEG (NEG); URINE BLOOD NEG (NEG); URINE COLOR YELLOW; URINE GLUCOSE NEG (NEG); URINE KETONE NEG (NEG); URINE LEUKOCYTE ESTERASE NEG (NEG); URINE NITRATE NEG (NEG); URINE PH 6.5 (5-8); URINE PROTEIN NEG (NEG); URINE SPECIFIC GRAVITY 1.012 (1.003-1.035); URINE UROBILINOGEN 0.2 MG/DL (NEG)
[2016-09-05 09:59] LABS: AMPHETAMINE NEG (NEG); BARBITURATES NEG (NEG); BENZODIAZEPINES NEG (NEG); COCAINE NEG (NEG); MARIJUANA NEG (NEG); OPIATES NEG (NEG); TRICYCLIC ANTIDEPRESSANTS NEG (NEG); U METHADONE NEG (NEG)
== END 2016-09-12 10:15 | disposition home or self-care (01) | DRG 885 ==
LOC: P2L 17:41
PROVIDERS: Psychiatry & Neurology Psychiatry
DX: F33.2 Major depressive disorder, recurrent severe without psychotic features (principal); F41.9 Anxiety disorder, unspecified; F17.210 Nicotine dependence, cigarettes, uncomplicated; F12.10 Cannabis abuse, uncomplicated
CPT/HCPCS: 80307; 81003

== ENCOUNTER 2016-09-21 13:00 | Inpatient (IN) | payer OTHER ==
[~2016-09-21] VITALS: Ht 172.7 cm; Wt 76.2 kg
--- NOTE | ~2016-09-21 | PA ---
Unit #: [id number] #: [id number] Patient: VANNESA GARCIA [id number] [facility] [address] [place] [address] [id number] MR#: [id number] NAME: VANNESA GARCIA ROOM: 85 Age: 26 Sex: M Admission Date: 09/21/2016 : 1990 Date of Assessment: Attending Physician: Artemio Salgado M.D. Admitting Physician: Artemio Salgado M.D. Primary Care Physician: Primary Care Physician No PSYCHIATRIC ASSESSMENT DATE OF ASSESSMENT 09/22/2016. INFORMANTS Patient, reliable; OLOP, reliable. CHIEF COMPLAINT Suicidal ideation. HISTORY OF PRESENT ILLNESS Vannesa Garcia is a 26-year-old man with previous admissions to this facility, who feels that his medication is not working. He feels increasingly helpless and hopeless about his inability to leave the house, extreme anxiety, and states that his fiancee recently left him. He is on no reason to live and had thought about taking an overdose or running into traffic. He was unable to contract for safety and was readmitted for stabilization. PAST PSYCHIATRIC HISTORY Previous admissions under the care of Dr. Morales and Dr. Gan. The patient is currently taking medications that he feels are only partially effective. He states he had "muscle spasms" from Neurontin and feels that buspirone has been ineffective. FAMILY PSYCHIATRIC HISTORY No family history of mental illness. SOCIAL HISTORY The patient is single, currently unemployed and living with his family. He recently broke up with a fiancee. PAST MEDICAL HISTORY No chronic medical problems. MEDICATIONS Please see MAR. ALLERGIES No known medication allergies. SUBSTANCE USE HISTORY The patient has a remote history of experimentation with drugs, but no current use of drugs or alcohol. Unit #: [id number] #: [id number] Patient: VANNESA GARCIA MENTAL STATUS EXAMINATION The patient presented as a mildly disheveled man, who appeared his stated age. He was pleasant and cooperative with the examination. Speech was spontaneous and easily understood. Musculoskeletal examination was calm. His mood was anxious and dysphoric with a congruent affect. He was alert and fully oriented. His memory and concentration were fair to good. His thought processes were goal directed with no psychosis. He reported vague suicidal ideation, but contracted for safety in the hospital. Insight and judgment were fair. Fund of knowledge and abstraction were fair. ASSETS AND LIABILITIES The patient knows local resources and presents voluntarily for treatment. Liabilities include lack of response to current medication. ADMITTING DIAGNOSIS AXIS I: Major depressive disorder, recurrent, severe, generalized anxiety disorder, history of cannabis abuse. AXIS II: No diagnosis. AXIS III: None acute. AXIS IV: AXIS V: PSYCHIATRIC PLAN The patient was admitted and placed on suicide precautions. After discussion of possible medication options, we would discontinue buspirone and initiate citalopram 20 mg daily for anxiety and depression and propranolol 10 mg twice daily at 8:00 a.m. and 2:00 p.m. for anxiety. The patient has specifically requested that we consider a benzodiazepine, but the limits of prescription were described with this medication and he was encouraged to seek outpatient referral to a psychiatrist who could discuss this medication with him and monitor appropriately as specified under state law. We expect a brief hospital stay, with followup in the community. Dictated by... Artemio Salgado M.D. SRINATH/mercedes TD: 09/23/2016 07:44 JOB #: [id number] PSYCHIATRIC ASSESSMENT Page 1 of 1 X Artemio Salgado MD X PSYCHIATRIC ASSESSMENT
--- NOTE | ~2016-09-21 | HP ---
Unit #: [id number] #: [id number] Patient: VANNESA VERGARA [id number] [facility] [address] [place] [address] [id number] MR#: [id number] NAME: VANNESA VERGARA ROOM: [facility] Age: 26 Sex: M Admission Date: 09/21/2016 : 1990 Attending Physician: Artemio Salgado M.D. Admitting Physician: Artemio Salgado M.D. Primary Care Physician: Primary Care Physician No HISTORY AND PHYSICAL The patient is a 26-year-old male admitted to [facility] on 09/21/2016 for suicidal ideation. The patient had a recent admission on 08/24/2016 where a full history and physical was completed. That history and physical has been reviewed and no changes need to be made. Dictated by... Gene Cruz/lara TD: 09/22/2016 15:48 JOB #: [id number] HISTORY AND PHYSICAL Page 1 of 1 X LALITHA MAYA APRN HISTORY AND PHYSICAL
[2016-09-22 10:43] LABS: BASOPHIL# 0.1 X10e3 (0-0.3); BASOPHIL% 0.8 % (0-2.5); EOSINOPHIL# 0.4 X10e3 (0-0.7); EOSINOPHIL% 5.7 % (0.0-7.0); HEMATOCRIT 48.1 % (38.0-50.0); HEMOGLOBIN 16.4 gm/dL (13.0-16.0); LYMPHOCYTE# 1.7 X10e3 (1.0-3.5); LYMPHOCYTE% 21.4 % (17.0-45.0); MEAN CELL VOLUME 86.2 FL (83-96); MEAN CORPUSCULAR HEMOGLOBIN 29.4 PG (28-34); MEAN CORPUSCULAR HGB CONC 34.1 g/dL (30-36); MEAN PLATELET VOLUME 8.3 FL (6.5-11.5); MONOCYTE# 0.9 X10e3 (0-1.0); MONOCYTE% 10.8 % (3.0-12.0); NEUTROPHIL# 4.8 X10e3 (1.5-7.1); NEUTROPHIL% 61.3 % (40-75); PLATELET COUNT 229 X10e3 (140-420); RED BLOOD COUNT 5.58 X10e (3.90-5.60); RED CELL DISTRIBUTION WIDTH 13.2 % (11.0-15.5); WHITE BLOOD COUNT 7.9 X10e3 (4.0-10.5)
[2016-09-22 10:54] LABS: ALBUMIN SERUM 3.7 g/dL (3.5-5.0); BILIRUBIN,TOTAL 0.5 mg/dL (0.2-2.0); CALCIUM SERUM 9.1 mg/dL (8.4-10.2); GLOM FILT RATE Estimated 102.7 mL/min (>60); POTASSIUM 4.2 mmol/L (3.5-5.1); PROTEIN TOTAL SERUM 5.8 g/dL (6.0-8.3)
[2016-09-22 11:02] LABS: DIFF IND NO
== END 2016-09-25 13:31 | DRG 885 ==
LOC: P1E 16:10
PROVIDERS: Psychiatry & Neurology Psychiatry
DX: F33.2 Major depressive disorder, recurrent severe without psychotic features (principal); R45.851 Suicidal ideations; F41.1 Generalized anxiety disorder
CPT/HCPCS: 80053; 85025

== ENCOUNTER 2016-10-31 13:26 | Emergency (ER) | payer OTHER ==
[2016-10-31] MEDS ORDERED: NEURONTIN (13:40)
[2016-10-31] MEDS ORDERED: CELEXA (13:40)
[2016-10-31] MEDS ORDERED: VISTARIL (13:40)
== END 2016-10-31 15:48 | disposition home or self-care (01) ==
LOC: SED 13:26
DX: F41.9 Anxiety disorder, unspecified (principal); F17.200 Nicotine dependence, unspecified, uncomplicated
CPT/HCPCS: 99284